=== PATIENT | male | born 1980 | race Caucasian/White ===

== ENCOUNTER 2019-06-19 06:51 | Inpatient (IN) | payer SELFPAY ==
[~2019-06-19] VITALS: Ht 185.4 cm; Wt 236.3 kg
[~2019-06-19 06:51] MED LIST: ULTRAM50 MG PO
[2019-06-19] MEDS ORDERED: SCOPOLAMINE 1.5 MG PATCH ONE (07:11)
[2019-06-19] MEDS ORDERED: LIDOCAINE HCL (LTA) 4 ML SOLN ONE (07:11)
[2019-06-19] MEDS ORDERED: ACETAMINOPHEN 1000 MG/100 ML 100 ML IV ONE (07:11)
[2019-06-19] MEDS ORDERED: SUGAMMADEX SODIUM 200 MG/2 ML VIAL IV ONE (07:12)
[2019-06-19] MEDS ORDERED: BUPIVACAINE 0.25% 30ML SDV INJ ONE (07:24)
[2019-06-19] MEDS ORDERED: CEFAZOLIN SOD 1 GM/NS 50ML 100 ML IV ONE (07:51)
[2019-06-19] MEDS ORDERED: SCOPOLAMINE 1.5 MG PATCH TOP SCH (10:00)
--- NOTE | 2019-06-19 12:10 | Operative Report ---
DATE OF PROCEDURE: 06/19/2019 SURGEON: Austin Win MD PREOPERATIVE DIAGNOSIS: Morbid obesity, BMI 71. POSTOPERATIVE DIAGNOSIS: Morbid obesity, BMI 71. PREOPERATIVE INDICATION: Treat disease, prevent complications related to comorbid conditions of obesity. PROCEDURE: Laparoscopic vertical sleeve gastrectomy. ANESTHESIA: General. ABORIGINAL EDUCATION TEACHER: Hunter Palmer, surgical oncologist (needed due to complexity of case). FLUIDS: 700 mL of crystalloid. ESTIMATED BLOOD LOSS: 30 mL. DRAINS: None. COMPLICATIONS: None. SPECIMENS: Partial stomach. GRAFTS: None. FINDINGS: 1. Normal upper GI anatomy. 2. Negative intraoperative EGD leak test. PROCEDURE IN DETAIL: The patient was brought to the operating room and was intubated under general endotracheal anesthesia. He was positioned supine both arms abducted and all pressure points were appropriately padded. He was sterilely prepped and draped in the usual fashion. A preprocedure pause was performed identifying the patient, use of perioperative antibiotics, intended procedure, and staff surgeon. Access was gained via a 5 mm left subcostal incision using a Veress needle. The abdomen was insufflated. Four additional trocars were placed in the standard positions. The liver retractor was used to expose the stomach. I then mobilized the greater curve of the stomach from 4 cm proximal to the pyloric valve to the left rosaura of the diaphragm using the [place] LigaSure device. An adult-sized endoscope was then placed along the lesser curve of the stomach. The greater curvature of stomach was resected with about 7 or 8 firings of a 60 mm purple load Medtronic stapling device, which was reinforced with Seamguard/TRS. I then conducted intraoperative EGD leak test, no leaks were identified, and the partial stomach which was resected was removed through the right periumbilical port site. The port site was closed with 0 Vicryl suture using the Dion Mcguire technique in a [id number] fashion. We then verified hemostasis, removed the liver retractor, and desufflated the abdomen. Incision sites were closed with 4-0 Monocryl suture in a subcuticular fashion. Dermabond dressing was applied. A 0.25% bupivacaine was used both at the preperitoneal incision sites. The patient tolerated the procedure well. Type of wound was type 2, clean, contaminated. All surgical sponge and instrument counts were correct. AustinMD MARY ANN Venegas/ANGELA /[id number]
[2019-06-19] MEDS ORDERED: HYDROMORPHONE 2MG/ML 2 MG/ML ML ONE (12:11)
[2019-06-19] MEDS ORDERED: ONDANSETRON HCL INJ 2MG/ML 2ML 2 MG/ML VIAL ONE ×2 (12:14→17:38)
[2019-06-19] MEDS ORDERED: METOCLOPRAMIDE HCL 10 MG/2ML VIAL ONE (12:14)
[2019-06-19] MEDS ORDERED: LABETALOL HCL 20 ML ONE (12:31)
--- NOTE | 2019-06-19 14:48 | NUR ---
RECEIVED PATIENT FROM RECOVERY. PATIENT A/O X3, EVEN RESPIRATIONS ON 2LNC. LUNG SOUNDS CLEAR TO AUSCULTATION. TELEMETRY #18 SR. 5 TROCAR SITES TO ABDOMEN. SCD'S AND NIMESH HOSE BILATERALLY. PAIN 2/10 TO ABDOMEN. PRN PAIN MEDICATION AVAILABLE. PATIENT NPO AT THIS TIME. CALL LIGHT IN REACH, BED LOW, WHEELS LOCKED, SIDE RAILS X2. WILL CONTINUE TO MONITOR PATIENT.
[2019-06-19] MEDS: LACTATED RINGER'S 1,000 ML IV SCH ×2 (15:30→22:29)
[2019-06-19 16:00] VITALS: BP 160/87
[2019-06-19 16:21] VITALS: BP 160/87
[2019-06-19 16:23] VITALS: BP 160/87
--- NOTE | 2019-06-19 17:15 | NUR ---
PATIENT HAS VOIDED SINCE SURGERY.
[2019-06-19] MEDS ORDERED: LIDOCAINE HCL 2% LOCAL INJ 5 ML SDV VIAL INJ ONE (17:38)
[2019-06-19] MEDS ORDERED: PROPOFOL IV EMULSION 10 MG/ML 20 ML VIAL ONE (17:38)
[2019-06-19] MEDS ORDERED: DEXAMETHASONE SOD PHOS INJ 4 MG/ML VIAL ONE (17:38)
[2019-06-19] MEDS ORDERED: ROCURONIUM BROMIDE 10 MG/ML 5ML VIAL ONE (17:38)
[2019-06-19] MEDS ORDERED: SEVOFLURANE INHAL SOLN 250 ML PEN BTL ONE (17:38)
[2019-06-19] MEDS ORDERED: MIDAZOLAM HCL 2 MG/2 ML VIAL ONE (17:59)
[2019-06-19] MEDS ORDERED: FENTANYL CITRATE/PF 100MCG/2 ML INJ ONE (17:59)
--- NOTE | 2019-06-19 18:15 | NUR ---
PATIENT AMBULATING AT THIS TIME. STEADY GAIT, NO SIGNS OF DISTRESS.
--- NOTE | 2019-06-19 18:53 | History and Physical ---
CHIEF COMPLAINT: "I had weight loss surgery." HISTORY OF PRESENT ILLNESS: This is a 38-year-old white man, who was admitted to [facility] with diagnosis of extreme obesity, BMI of 71, complicating underlying hypertension. Today, the patient underwent successful laparoscopic sleeve gastrectomy. This was performed by his bariatric surgeon namely, Dr. Austin Win. The patient is currently in the postanesthesia care unit and is experiencing some upper abdominal pain that he feels is secondary to gas. The patient denies any nausea or vomiting. The patient denies any shortness of breath. REVIEW OF SYSTEMS: GENERAL: Weight has been stable. No fever or chills. HEENT: No headaches. No visual changes. CARDIOVASCULAR/RESPIRATORY: No chest pain. No shortness of breath. No cough. GI: Complains of upper abdominal pain, which he feels is gas. The patient states at this time he cannot belch. Denies any flatus. : Santacruz catheter is removed. NEUROMUSCULAR: No limb weakness or numbness. PAST MEDICAL HISTORY: Extreme obesity, BMI of 71. PAST SURGICAL HISTORY: 1. Laparoscopic sleeve gastrectomy today. 2. Bone marrow donation in 1996. ALLERGIES: NO KNOWN DRUG ALLERGIES. HOME MEDICATIONS: None. FAMILY HISTORY: No history of diabetes mellitus or hypertension. SOCIAL HISTORY: He is , lives with his . 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 Denies any history of tobacco or alcohol use. PHYSICAL EXAMINATION: GENERAL: He is somnolent, but arousable. He is in no obvious distress. VITAL SIGNS: Height 6 feet 1 inch, weight 540 pounds, and BMI 71. Blood pressure is 178/108, pulse is 82, respiratory rate is 22, oxygen saturation 96% on 2 L oxygen, and temperature 98.0. INTEGUMENT: Skin is warm and dry. No pallor, jaundice, or diaphoresis. HEENT: Anicteric sclerae. Moist mucous membranes. NECK: Supple. No evidence of jugular venous distention. CARDIOVASCULAR: Distant heart sounds. Regular rate and rhythm. LUNGS: No rales. No rhonchi. No wheezes. ABDOMEN: Obese. The laparoscopic incisions are clean, dry, and intact. EXTREMITIES: He does have trace edema in the lower legs, but he is currently wearing sequential compression devices. NEUROLOGIC: Intact. No gross focal deficits appreciated. DIAGNOSES: 1. Extreme obesity, BMI of 71 complicating underlying hypertension. 2. Status post laparoscopic sleeve gastrectomy. 3. Hypertension. PLAN: 1. Blood pressure monitoring control. 2. Encourage incentive spirometry to prevent atelectasis. 3. Pain control. 4. Mobilize. 5. Gentle intravenous fluids. 6. Follow electrolytes and renal function. I spent 40 minutes in the care of this patient. I would like to thank today, Dr. Win, for allowing me to participate in the care of this patient. MD BETSY Pfeiffer/ANGELA /[id number] MTDD
[2019-06-19] MEDS: ONDANSETRON HCL INJ 2MG/ML 2ML 2 MG/ML VIAL IV PRN (18:59)
[2019-06-19] MEDS: MORPHINE SULFATE 2 MG/ML SYR 1ML IV PRN ×2 (19:04→22:29)
--- NOTE | 2019-06-19 19:27 | NUR ---
Received consult for bariatric diet education. Provided pt with handout regarding gastric sleeve post-surgery diet guidelines. Pt was not interested in verbal explanation at time of visit and stated he will read provided materials at a later time. Encouraged pt to contact RD if he has questions. Signed: Nargis Donahue RD, NEELA
[2019-06-19 19:30] VITALS: BP 161/85
[2019-06-19 20:47] VITALS: BP 161/85
[2019-06-19] MEDS: ENOXAPARIN SOD INJ 40 MG/0.4 ML SYR SC SCH (21:10)
[2019-06-20] VITALS: BP 169/86
--- NOTE | 2019-06-20 | NUR ---
Assessment done.no resp.distress.pain medication given.ambulates in the [address].5 trochar sites dry.scd in place.uses spirometer.iv fluid infusing.family member at bed side.bed locked and in lowest position.phone and call light within reach.instructed to call for assistance as needed.
[2019-06-20 04:35] VITALS: BP 162/95
[2019-06-20] MEDS: MORPHINE SULFATE 2 MG/ML SYR 1ML IV PRN (04:55)
[2019-06-20] MEDS: ONDANSETRON HCL INJ 2MG/ML 2ML 2 MG/ML VIAL IV PRN (04:55)
[2019-06-20] MEDS: LACTATED RINGER'S 1,000 ML IV SCH ×2 (05:12→08:26)
[2019-06-20 06:26] LABS: BASOPHILS % 0.3 % (0.0-1.0); EOSINOPHILS % 0.1 % (0.0-6.0); HEMATOCRIT 45.7 % (38.2-49.6); HEMOGLOBIN 14.9 g/dL (14.0-18.0); LYMPHOCYTES # (AUTO) 1.1 (1.0-3.2); LYMPHOCYTES % 9.6 % (18.0-39.1); MEAN CORPUSCULAR HEMOGLOBIN 27.3 pg (28-32); MEAN CORPUSCULAR HGB CONC 32.6 g/dL (31-35); MEAN CORPUSCULAR VOLUME 83.9 fL (81-99); MONOCYTES # (AUTO) 0.6 (0.2-0.8); MONOCYTES % 5.3 % (4.4-11.3); NEUTROPHILS # (AUTO) 9.4 (2.1-6.9); NEUTROPHILS % 84.3 % (38.7-80.0); PLATELET COUNT 281 x10e3/uL (140-360); RED BLOOD COUNT 5.45 x10e6/uL (4.3-5.7); RED CELL DISTRIBUTION WIDTH 14.5 % (11.7-14.4)
--- NOTE | 2019-06-20 06:50 | NUR ---
BED SIDE SHIFT REPORT GIVEN TO THE ONCOMING RN.STABLE CONDITION.
[2019-06-20 06:57] LABS: ALANINE AMINOTRANSFERASE 40 IU/L (0-55); ALBUMIN 3.8 g/dL (3.5-5.0); ALBUMIN/GLOBULIN RATIO 1.1 (0.8-2.0); ALKALINE PHOSPHATASE 52 IU/L (40-150); ANION GAP 16.9 mmol/L (8-16); BLOOD UREA NITROGEN 9 mg/dL (7-26); BUN/CREATININE RATIO 10 (6-25); CALCIUM 9.5 mg/dL (8.4-10.2); CARBON DIOXIDE 26 mmol/L (22-29); CHLORIDE 101 mmol/L (98-107); CREATININE, SERUM 0.88 mg/dL (0.72-1.25); EST GLOMERULAR FILTRATION RATE > 60 ML/MIN (60-); GLUCOSE 117 mg/dL (74-118); PHOSPHORUS 3.4 MG/DL (2.3-4.7); POTASSIUM 4.9 mmol/L (3.5-5.1); SODIUM 139 mmol/L (136-145)
--- NOTE | 2019-06-20 07:00 | NUR ---
RECEIVED PATIENT IN RECLINER NO S/S OF DISTRESS. CALL LIGHT IN REACH, WHEELS LOCKED, WILL CONTINUE TO MONITOR PATIENT.
[2019-06-20 08:10] VITALS: BP 160/93
--- NOTE | 2019-06-20 08:24 | NUR ---
Progress note S: No complaints O: af, vss General- no distress Abd- soft, incisions c/d/i A/P: POD 1, s/p Lap sleeve gastrectomy -Clears, ambulate, IS, OOB to chair -DC Home -F/u this week
[2019-06-20] MEDS: ENOXAPARIN SOD INJ 40 MG/0.4 ML SYR SC SCH (08:26)
[2019-06-20] MEDS ORDERED: FAMOTIDINE 20 MG TAB PO ONE (08:30)
[2019-06-20] MEDS: HYDROCODONE/APAP 7.5MG-325MG 1 EA TAB PO PRN ×2 (08:36→13:22)
--- NOTE | 2019-06-20 09:00 | NUR ---
PATIENT A/O X3, EVEN RESPIRATIONS ON RA. LUNG SOUNDS CLEAR TO AUSCULTATION. TROCAR SITES TO ABDOMEN. PATIENT TOLERATING CLEAR LIQUIDS AND PASSING GAS. PATIENT AMBULATES INDEPENDENTLY. CALL LIGHT IN REACH, BED LOW, WHEELS LOCKED, SIDE RAILS X2. WILL CONTINUE TO MONITOR PATIENT.
[2019-06-20 09:33] VITALS: BP 160/93
--- NOTE | 2019-06-20 09:36 | Discharge Summary ---
ADMITTING DIAGNOSES: 1. Extreme obesity, BMI 71, complicating underlying hypertension. 2. Hypertension. DISCHARGE DIAGNOSES: 1. Status post laparoscopic sleeve gastrectomy. 2. Extreme obesity, BMI 71, complicating underlying hypertension. 3. Hypertension. HOSPITAL COURSE: This is a 38-year-old white man, who was admitted to [facility] with diagnosis of extreme obesity, BMI 71 that was complicated underlying hypertension. During this hospitalization, the patient underwent successful laparoscopic sleeve gastrectomy. Surgery was performed by Dr. Austin Win. The patient's brief hospitalization was unremarkable. On discharge, he was tolerating clear liquid diet. DISCHARGE MEDICATIONS: 1. Rothschild 7.5/325 one pill every 6 hours p.r.n. pain, 25 prescribed, no refills. 2. Zofran 4 mg one pill every 6 hours p.r.n. nausea and vomiting, 20 prescribed, no refills. FOLLOWUP INSTRUCTIONS: The patient instructed to follow with Dr. Austin Win within 1 week and with his primary care physician in [facility] within two weeks. I informed the patient that he will need to have his blood pressure monitored at his primary care physician's office. I did recommend the patient by an automated blood pressure machine that he checks blood pressure once or twice a day and keep a written log, so his primary care physician can make an accurate assessment of his true blood pressure readings. MD BETSY Pfeiffer/ANGELA /[id number] cc: Austin Win MD MTDD
[2019-06-20] MEDS ORDERED: TYLENOL WITH C1 EACH PO (10:26)
[2019-06-20] MEDS ORDERED: ZOFRAN4 MG PO (10:27)
[2019-06-20] MEDS ORDERED: LOVENOX60 MG/0.6 SC (10:28)
[2019-06-20 11:36] VITALS: BP 173/104
--- NOTE | 2019-06-20 11:42 | NUR ---
SPOKE WITH DR. JAVED REGARDING BP 173/104. NEW ORDER FOR 0.1 MG CLONIDINE PO X1.
[2019-06-20] MEDS ORDERED: CLONIDINE HCL 0.1 MG TAB PO ONE (11:45)
--- NOTE | 2019-06-20 13:22 | NUR ---
REMOVED PATIENTS IV. CATHETER TIP INTACT AND PRESSURE DRESSING APPLIED.
--- NOTE | 2019-06-20 13:30 | NUR ---
PATIENT DISCHARGED FROM FACILITY. PATIENT GATHERED ALL PERSONAL BELONGINGS, DISCHARGE INSTRUCTIONS, AND FOLLOW UP INFORMATION. LEFT UNIT IN WHEELCHAIR AND WENT HOME VIA PRIVATE AUTO. NO SIGNS OF DISTRESS WHEN LEAVING FACILITY.
== END 2019-06-20 13:32 | disposition home or self-care (01) | DRG 621 ==
LOC: OR 06:51 → PACU V 12:00 → MED/SURG 14:49
PROVIDERS: ADMIT Internal Medicine; ATTEND Internal Medicine
PROC: 0DB64Z3 Excision of Stomach, Percutaneous Endoscopic Approach, Vertical (ICD-10-PCS; principal; 2019-06-19 09:00)
DX: E66.01 Morbid (severe) obesity due to excess calories (principal); Z68.45 Body mass index [BMI] 70 or greater, adult; I10 Essential (primary) hypertension
CPT/HCPCS: 36415; 80053; 83735; 84100; 85025; J0690; J1100; J1650; J2001; J2250; J2270; J2405; J2765; J3010; J7121